=== PATIENT | female | born 1955 | race Caucasian/White ===

== ENCOUNTER 2017-05-26 09:38 | Outpatient (CLI) | payer OTHER | END 2017-05-26 19:51 | disposition home or self-care (01) | LOC: SRD 09:38 | PROVIDERS: ATTEND Family Medicine | DX: R92.8 Other abnormal and inconclusive findings on diagnostic imaging of breast (principal) | CPT/HCPCS: G0204 ==

== ENCOUNTER 2019-12-03 08:42 | Outpatient (CLI) | payer OTHER | END 2019-12-03 19:33 | disposition home or self-care (01) | LOC: SMA 08:42 | PROVIDERS: ATTEND Physician Assistant Medical | DX: Z12.31 Encounter for screening mammogram for malignant neoplasm of breast (principal) | CPT/HCPCS: 77067 ==